=== PATIENT | female | born 1930 | race Caucasian/White ===

== ENCOUNTER 2018-04-19 14:40 | Observation (INO) ==
[2018-04-19] MEDS ORDERED: NITROGLYCERIN TOP ONE (14:47)
[2018-04-19] MEDS ORDERED: ZOFRAN IV ONE (14:47)
[2018-04-19] MEDS ORDERED: NS 1,000 ML IV ONE (14:47)
--- NOTE | 2018-04-19 15:05 | EKG Report ---
Test Performed on : 04/19/2018 2:53:13 PM Test Reason : CHEST PAIN Blood Pressure : / mmHG Vent. Rate : 051 BPM Atrial Rate : 043 BPM P-R Int : 000 ms QRS Dur : 144 ms QT Int : 486 ms P-R-T Axes : 000 -60 -16 degrees QTc Int : 447 ms Atrial fibrillation. with slow ventricular response. with a competing junctional pacemaker. Right bundle branch block Left anterior fascicular block Bifascicular block T wave abnormality, consider lateral ischemia Abnormal ECG No previous ECGs available Unconfirmed Result
--- NOTE | 2018-04-19 15:17 | Diag Imaging Result Doc PS360 ---
CHEST-PORTABLE - 04/19/2018 INDICATION: cp COMPARISON: None FINDINGS: There is mild cardiomegaly. Pulmonary vascularity is grossly normal. There is probably a small hiatal hernia. No infiltrates or edema. No pneumothorax or significant pleural effusion. IMPRESSION: Cardiomegaly. Small hiatal hernia. Electronically signed by Ryan Muro 04/19/2018 3:14 PM
[2018-04-19 16:42] LABS: URINE SOURCE CLEAN CATCH
[2018-04-19 16:46] LABS: UR EPITHELIAL CELLS <10 /HPF (<10); URINE BACTERIA NEGATIVE /HPF; URINE RBC <10 /HPF (<10); URINE WBC <10 /HPF (<10)
[2018-04-19 16:47] LABS: BILIRUBIN URINE NEGATIVE (NEGATIVE); BLOOD URINE NEGATIVE (NEGATIVE); COLOR YELLOW; GLUCOSE URINE NEGATIVE (NEGATIVE); KETONE URINE NEGATIVE (NEGATIVE); LEUKOCYTES URINE NEGATIVE (NEGATIVE); NITRITE URINE NEGATIVE (NEGATIVE); PH URINE 5.5; PROTEIN URINE NEGATIVE (NEGATIVE); SP GRAVITY URINE 1.005; TURBIDITY URINE CLEAR (CLEAR); UROBILINOGEN URINE NORMAL (NORMAL)
[2018-04-19 17:23] LABS: BASO# 0.03 X1000 (0.0-0.2); BASO% 0.2 % (0.0-0.8); EOS# 0.02 X1000 (0.0-0.7); EOS% 0.2 % (0.0-10.0); HEMOGLOBIN 11.8 g/dL (12.0-16.0); IMM GRAN# 0.04 X1000 (0.0-0.04); IMM GRAN% 0.3 % (0.0-0.5); LYMPH# 1.25 X1000 (1.2-3.4); LYMPH% 10.3 % (20.5-51.1); MCH 29.8 PG (27-31); MCHC 31.1 g/dL (33-37); MONO# 0.42 X1000 (0.11-0.59); MONO% 3.4 % (1.7-9.3); MPV 9.7 FL (7.4-10.4); NEUT# 10.42 X1000 (1.4-6.5); NEUT% 85.6 % (42.2-75.2); PLT 211 X1000 (130-400); RBC 3.96 XMIL (4.2-5.4); RDW 14.4 % (11.5-14.5); WBC 12.18 X1000 (4.8-10.8)
[2018-04-19 17:32] LABS: INR 1.67
[2018-04-19 17:33] LABS: PTT 36.7 Seconds (22.3-41.8)
[2018-04-19 17:47] LABS: ALB/GLOB RATIO 1.6; ALBUMIN 4.3 g/dL (3.5-5.0); CALCIUM 9.3 mg/dL (8.8-10.2); CREATININE 1.8 mg/dL (0.5-0.9); MAGNESIUM 1.3 mg/dL (1.5-2.7); POTASSIUM 4.7 mmol/L (3.5-5.1); TOTAL BILIRUBIN 0.21 mg/dL (0.20-1.00)
[2018-04-19] MEDS ORDERED: LOVENOX 1 MG/KG SUBQ ONE (17:51)
[2018-04-19 18:03] LABS: CK INDEX 5.2 (0.0-2.5); CK-MB 11.75 ng/mL (0.0-5.0)
--- NOTE | 2018-04-19 18:04 | PROVIDER DOCUMENTATION ---
This chart was entered by Charu Be Scribe, acting as scribe for Lance Estrada MD. HPI-Chest Pain - General Stated Complaint: CP Time Seen by Provider: 04/19/18 14:40 Source: patient Allergies/Adverse Reactions: Patient Allergies Allergy/AdvReac Type Severity Reaction Status Date / Time Sulfa (Sulfonamide Allergy RASH Verified 04/19/18 16:01 Antibiotics) Home Medications: Home Medication List Medication Instructions Recorded Confirmed Last Taken Type Escitalopram [Lexapro] 10 mg PO DAILY 04/19/18 04/19/18 Unknown History Felodipine [Felodipine ER] 10 mg PO DAILY 04/19/18 04/19/18 Unknown History Furosemide 20 mg PO DAILY 04/19/18 04/19/18 Unknown History Gabapentin 300 mg PO DAILY 04/19/18 04/19/18 Unknown History Latanoprost 1 drop ORDERED DAILY 04/19/18 04/19/18 Unknown History Levothyroxine [Synthroid] 88 mcg PO DAILY 04/19/18 04/19/18 Unknown History Montelukast Sodium 10 mg PO DAILY 04/19/18 04/19/18 Unknown History Omeprazole 20 mg PO DAILY 04/19/18 04/19/18 Unknown History Prazosin HCl 2 mg PO DAILY 04/19/18 04/19/18 Unknown History Ropinirole HCl 0.5 mg PO DAILY 04/19/18 04/19/18 Unknown History Valsartan/Hydrochlorothiazide 0.5 tab PO DAILY 04/19/18 04/19/18 Unknown History [Valsartan-Hctz 320-25 mg Tab] - History of Present Illness-CP Nature of Presenting Problem: Patient is a 88 year old female who presents to the ED with left side chest pain. Patient states chest pain radiates to left shoulder and left arm. Patient states nausea, shortness of breath, diaphoresis, weakness and dizziness with chest pain. Patient states symptoms started 3 days ago. Patient states she is currently on Coumadin for history of blood clots. Chest Pain Radiation: reports: arms (left), shoulders (left) Quality of Pain: reports: aching Severity in ED: mild Onset/Duration: 3 days ago Timing: still present, getting worse Context/Activities at Onset: reports: light activity Modifying Factors: improves with: nothing Associated Symptoms: reports: diaphoresis, dizziness, nausea, shortness of breath, weakness Similar Symptoms Previously?: Yes Recently Seen Here or By Another Healthcare Provider: No Review of Systems - Adult - REVIEW OF SYSTEMS - ADULT Constitutional: reports: no symptoms reported Eyes: reports: no symptoms reported Ears, Nose, Mouth & Throat: reports: no symptoms reported Cardiovascular: reports: chest pain (left). denies: heart murmur, palpitations Respiratory: reports: shortness of breath. denies: cough, wheezing Gastrointestinal: reports: nausea. denies: abdominal pain, diarrhea, vomiting Genitourinary: reports: no symptoms reported Musculoskeletal: reports: muscle weakness, other (left shoulder and left arm pain). denies: back pain, neck pain Integumentary: reports: no symptoms reported Neurological: reports: dizziness/vertigo (dizziness). denies: headache/ migraines, numbness, seizure, syncope Psychiatric: reports: no symptoms reported Endocrine: reports: no symptoms reported Hematologic/Lymphatic: reports: no symptoms reported Allergic/Immunologic: reports: no symptoms reported All Other Systems: Reviewed and Negative Past History - Adult - PAST MEDICAL HISTORY-ADULT Review of Records: reports: Nursing Assessment Review, Medications Reviewed, Social history reviewed & non-contributory. Major Childhood Illnesses: reports: denies history Cardiovascular: reports: denies history Respiratory: reports: denies history Gastrointestinal: reports: denies history Obstetrical/Gynecological: reports: denies history Genitourinary: reports: denies history Musculoskeletal: reports: denies history Neurological: reports: denies history Psychiatric: reports: denies history Endocrine/Immune: reports: denies history Other Conditions: reports: denies history - PRIOR SURGERIES/PROCEDURES Surgical/Procedure History: reports: reviewed, not pertinent - IMMUNIZATION STATUS Childhood Immunizations: See Nurse Assessment Flu Vaccine: See Nurse Assessment - FAMILY HISTORY Family History: reviewed, not pertinent - SOCIAL HISTORY Smoking: denies Substance Use: denies Physical Exam-General - PHYSICAL EXAM-ADULT Initial Vital Signs Reviewed: Yes - CONSTITUTIONAL General Appearance: alert, no apparent distress, anxious - HEAD, EARS, NOSE, MOUTH & THROAT HENMT: moist mucous membranes - RESPIRATORY Respiratory: chest non-tender, lungs clear, normal breath sounds - CARDIOVASCULAR Cardiovascular: bradycardia, systolic murmur (1/6) - GASTROINTESTINAL (ABDOMEN) Abdominal Exam: normal bowel sounds, non tender, soft - MUSCULOSKELETAL Extremity: non-tender, normal inspection - SKIN Integumentary: normal color, normal turgor, warm/dry - NEUROLOGIC Neurologic: grossly normal - PSYCHIATRIC Psych/Mental Status: normal mood/affect, oriented x 3 - HEART Score HEART Score: History: Highly Suspicious HEART Score: ECG: Non-Specific Repolarization Disturbance/LBBB/PM HEART Score: Age: > or = 65 Years HEART Score: Risk Factors for Atherosclerotic Disease: > or = 3 Risk Factors or History of Atherosclerotic Disease HEART Score: Troponin: < or = Normal Limit (HIgh Risk) Total HEART Score:: 7 Progress - PLAN OF CARE/RESULTS Progress/Plan/Lab Results: Vital Signs - 8 hr 04/19/18 15:03 Temperature 97.6 F Pulse Rate 87 Respiratory Rate 18 Blood Pressure 112/88 O2 Sat by Pulse Oximetry 88 L Laboratory Results - last 24 hr 04/19/18 04/19/18 04/19/18 16:35 17:13 17:13 WBC 12.18 H RBC 3.96 L Hgb 11.8 L Hct 38.0 MCV 96.0 MCH 29.8 MCHC 31.1 L RDW Std Deviation 14.4 Plt Count 211 MPV 9.7 Immature Gran % (Auto) 0.3 Neut % (Auto) 85.6 H Lymph % (Auto) 10.3 L [place] % (Auto) 3.4 Eos % (Auto) 0.2 Baso % (Auto) 0.2 Immature Gran # (Auto) 0.04 Neut # (Auto) 10.42 H Lymph # (Auto) 1.25 [place] # (Auto) 0.42 Eos # (Auto) 0.02 Baso # (Auto) 0.03 PT INR PTT (Actin FS) Sodium 141 Potassium 4.7 Chloride 100 Carbon Dioxide 25 Anion Gap 16 BUN 30 H Creatinine 1.8 H Estimated GFR/1.73 m2 27 BUN/Creatinine Ratio 17 Glucose 127 H Calculated Osmolality 289 Calcium 9.3 Magnesium 1.3 L Total Bilirubin 0.21 AST 27 ALT 19 Alkaline Phosphatase 70 Creatine Kinase 225 H Troponin T Lxa-Z-Vmuphnkqqyb Pept Total Protein 7.0 Albumin 4.3 Globulin 2.7 Albumin/Globulin Ratio 1.6 Urine Source CLEAN CATCH Urine Color YELLOW Urine Turbidity CLEAR Urine pH 5.5 Ur Specific [place] 1.005 Urine Protein NEGATIVE Ur Glucose (Stick) NEGATIVE Ur Ketones (Stick) NEGATIVE Urine Blood NEGATIVE Urine Nitrite NEGATIVE Urine Bilirubin NEGATIVE Urobilinogen Dipstick NORMAL Urine Leukocytes NEGATIVE Urine WBC (Auto) <10 Urine RBC (Auto) <10 U Epithel Cells (Auto) <10 Urine Bacteria (Auto) NEGATIVE 04/19/18 04/19/18 04/19/18 17:13 17:13 17:13 WBC RBC Hgb Hct MCV MCH MCHC RDW Std Deviation Plt Count MPV Immature Gran % (Auto) Neut % (Auto) Lymph % (Auto) [place] % (Auto) Eos % (Auto) Baso % (Auto) Immature Gran # (Auto) Neut # (Auto) Lymph # (Auto) [place] # (Auto) Eos # (Auto) Baso # (Auto) PT 21.0 H INR 1.67 PTT (Actin FS) 36.7 Sodium Potassium Chloride Carbon Dioxide Anion Gap BUN Creatinine Estimated GFR/1.73 m2 BUN/Creatinine Ratio Glucose Calculated Osmolality Calcium Magnesium Total Bilirubin AST ALT Alkaline Phosphatase Creatine Kinase Troponin T 0.174 H Twk-A-Nkoezlwulnz Pept 2171 H Total Protein Albumin Globulin Albumin/Globulin Ratio Urine Source Urine Color Urine Turbidity Urine pH Ur Specific [place] Urine Protein Ur Glucose (Stick) Ur Ketones (Stick) Urine Blood Urine Nitrite Urine Bilirubin Urobilinogen Dipstick Urine Leukocytes Urine WBC (Auto) Urine RBC (Auto) U Epithel Cells (Auto) Urine Bacteria (Auto) Orders Category Date Time Status Nursing- Obtain EKG once Care 04/19/18 14:46 Active Nursing- Obtain EKG once Care 04/19/18 17:50 Active Saline Loc NOW Care 04/19/18 14:45 Active Physician/Provider Consults Stat Cons 04/19/18 18:00 Ordered Heart Healthy Diet Diet 04/19/18 17:24 Active CHEST-PORTABLE [RAD] Stat Exams 04/19/18 14:[address] ANGIOGRM PULMONARY ARTERIES [CT] Stat Exams 04/19/18 14:47 Ordered CBC WITH ELECTRONIC DIFF [HEME] Stat Lab 04/19/18 17:13 Completed CK PROFILE [SP CHEM] Stat Lab 04/19/18 17:13 Results COMPREHENSIVE METABOLIC PANEL [CHEM] Stat Lab 04/19/18 17:13 Results MAGNESIUM [CHEM] Stat Lab 04/19/18 17:13 Results PRO B-NATRIURETIC PEPTIDE Stat Lab 04/19/18 17:13 Completed PROTIME WITH INR [COAG] Stat Lab 04/19/18 17:13 Completed PTT [COAG] Stat Lab 04/19/18 17:13 Completed TROPONIN T Stat Lab 04/19/18 17:13 Completed TSH Stat Lab 04/19/18 17:13 Received URINALYSIS W/POSS RFLX CULT [URINALYSIS] Stat Lab 04/19/18 16:35 Completed 0.9% Sodium Chloride Inj [Ns] 1,000 ml Med 04/19/18 14:47 Discontinued IV 999 mls/hr Enoxaparin 1 mg/kg [Lovenox 1 mg/kg] Med 04/19/18 17:51 Discontinued 1 each SUBQ NOW ONE Nitroglycerin Med 04/19/18 14:47 Discontinued 0.5 inch TOP NOW ONE Ondansetron [Zofran] Med 04/19/18 14:47 Discontinued 4 mg IV NOW ONE EKG [EKG] Stat Ther 04/19/18 14:46 Draft EKG [EKG] Stat Ther 04/19/18 17:50 Ordered Result Diagrams: 04/19/18 17:13 04/19/18 17:13 - EKG 1 Time of EKG reading by physician:: 14:53 EKG Read and Signed by:: Lance Estrada EKG Interpretation (*Must complete 3 of following elements*): Abnormal (rhythm - atrial fibrillation with slow ventricular response with a competing junctional pacemaker; T wave abnormality, consider lateral ischemia) Rate: 51 QRS: RBB Comments: left anterior fascicular block; bifascicular block; 2 Time of EKG reading by physician:: 18:01 EKG Read and Signed by:: Lance Estrada EKG Interpretation (*Must complete 3 of following elements*): Abnormal Rate: 72 Rhythm: NSR Eldridge: left QRS: other (Bifascicular block, first degree AV block, LVH) WA Interval: prolonged ST Wave: non-specific ST changes Prior EKG Comparison: changes noted (increased rate) - XRAY 1 XRAY Study: Chest Impression: See EMR Report (CHEST-PORTABLE - 04/19/2018 INDICATION: cp COMPARISON: None FINDINGS: There is mild cardiomegaly. Pulmonary vascularity is grossly normal. There is probably a small hiatal hernia. No infiltrates or edema. No pneumothorax or significant pleural effusion. IMPRESSION: Cardiomegaly. Small hiatal hernia. Electronically signed by Ryan Muro 04/19 3:14 PM 04/19/18 1514 Interpreting Physician: Ryan Muro MD Dictated Date/Time: 04/19/18 1514 cc: Lance Estrada MD; Ana Luisa Brennan MD) - CONSULTS/PCP/HOSPITALIST Notification #1 *Consult/PCP/Hospitalist*: Ralph Time Discussed: 18:02 Consult Disposition: Admit (to hospitalist) #2 Consult: CLIFTON Dockery Time Discussed: 18:03 (Admit to [facility]) Consult Disposition: Admit Departure - Departure Date of Disposition Decision: 04/19/18 Time of Disposition Decision: 18:03 DIAGNOSIS: Acute coronary syndrome, NSTEMI, initial episode of care, New onset of congestive heart failure Disposition: ADMITTED INPATIENT 09 Certified Medical Emergency: Emergent Condition: Fair Referrals and Follow-Ups: Ana Luisa Brennan MD [Primary Care Provider] - - Critical Care Note This patient required my direct & personal management of CC.: Yes Total Time (mins): 45 Critical Care Statement: This patient required my direct personal management to treat or rule out processes, the absence of which, could potentiallly result in sudden, clinically significant life or limb threatening deterioration. Attestation - Physician/ KESHA Attestation Patient care was provided by Advanced Practice Provider:: No The physician spent face to face time with patient:: Yes Advanced Practice Provider documentation review:: Supervising physician onsite and consulted in the evaluation and care of this patient. The physician did have a face to face encounter with the patient. This chart was documented by the indicated scribe, (Charu Be Scribe) and accurately reflects the services I performed and decisions made by , Lance Estrada MD, as attested by the provider's signature.
[2018-04-19] MEDS ORDERED: ZOFRAN IV PRN (18:21)
[2018-04-19] MEDS ORDERED: MORPHINE IV PRN (18:21)
[2018-04-19] MEDS ORDERED: LOVENOX SUBQ ONE (18:45)
[2018-04-19] MEDS ORDERED: MAGNESIUM SULFATE 2 GM/S.W.I. 2 GM/50 ML IVPB IV ONE (18:55)
--- NOTE | 2018-04-19 19:39 | HISTORY AND PHYSICAL ---
CHIEF COMPLAINT: Chest pain. PRIMARY CARE PROVIDER: Ana Luisa Brennan MD MINILAB OPERATOR: Nathan Purvis MD HISTORY OF PRESENT ILLNESS: Ms. Guerrero is a pleasant 88-year-old female, who carries a past medical history of lower extremity DVT in the past on Coumadin, left diseased kidney, sleep apnea and patient wears CPAP at night, atrial fibrillation, hypothyroidism, right hip arthritis, GERD, hyperlipidemia, hypertension, bilateral glaucoma, anxiety, and depression , who reports to the ED secondary to a possible syncopal episode after having chest pain. She reports last she had an intense episode of chest pain overnight. She sat up most of the night praying and hoping that the pain subsided. She states around the esthetician/spa coordinator she took a Tylenol, put on her CPAP, and was able to drift off to sleep. She had a 2nd episode of sudden sharp chest pain this a.m., where she got dizzy, nauseated, and a sharp pain in the center of her chest that radiated to her mid forearm. She states she tried to get today and mail some letters and was going to get ready for the day; however, she continued to feel weak and was walking into the den, and her daughter found her in the den in between the couch and the coffee table. She does not know how long she was out or really recall that much information or if she hit her head. We will check a head CT. EKG did show atrial fibrillation with a slow ventricular response with competing junctional pacemaker and a right bundle branch block. She did have elevated troponins at 0.174, an elevated white count, a BUN of 30, and a creatinine of 1.8. The patient does state that she has a diseased left kidney. She is unaware of her baseline renal function. We will admit her to [facility] for chest pain. Dr. Estrada has already spoken with Dr. Francisco Javier Rosas. We will do full-dose Lovenox. Continue with nitroglycerin paste, p.r.n. morphine. We will check an echocardiogram in the a.m. PAST MEDICAL HISTORY: 1. Lower extremity DVT, on Coumadin 2 mg at bedtime. 2. Arthritis with a bad right hip. She states she does not walk outside that often secondary to the pain in her hip. 3. Hypothyroidism. 4. Atrial fibrillation. 5. Gastroesophageal reflux disease. 6. Hyperlipidemia. 7. Hypertension. 8. Restless leg syndrome versus arthritis. 9. Sleep apnea, on CPAP. 10. Left disease kidney. 11. Bilateral glaucoma. 12. Anxiety and depression. SURGICAL HISTORY: 1. Hysterectomy. 2. Vein stripping. 3. Left lower. 4. Heart catheterization years ago in [place]. SOCIAL HISTORY: She is from [place], [place]. She moved here 5 years ago. She was seeing Dr. Trejo. She is now seeing Dr. Brennan after Dr. Trejo retired. She is a of 19 years. No alcohol, tobacco, or illicit drug use. ALLERGIES: Sulfa causes a rash. HOME MEDICATIONS: 1. Lexapro 10 mg p.o. daily. 2. Felodipine 10 mg p.o. daily. 3. Lasix 20 mg p.o. daily. 4. Gabapentin 300 mg p.o. daily. 5. Latanoprost 1 drop as ordered daily. 6. Synthroid 88 mcg p.o. daily. 7. Singulair 10 mg p.o. daily. 8. Prilosec 20 mg p.o. daily. 9. Requip 0.5 mg p.o. daily. 10. Valsartan/hydrochlorothiazide 320/25 mg tablet half a tablet p.o. daily. 11. Coumadin 2 mg p.o. at bedtime. REVIEW OF SYSTEMS: A 14 point review of systems was completed and negative, except for those mentioned in the HPI. PHYSICAL EXAMINATION: VITAL SIGNS: Temperature is 97.6 degrees, heart rate 87, respirations 18, blood pressure 112/88, O2 was 88% on room air, patient is now on nasal cannula, saturating in the high 90s. GENERAL: Ms. Guerrero is a timid 88-year-old female, who is lying on the stretcher in no acute distress. HEENT: Atraumatic, normocephalic. PERRL. NECK: Supple. Trachea midline. CARDIOVASCULAR: S1, S2 appreciated. No murmurs, gallops, or rubs noted. RESPIRATORY: Lung sounds clear. Chest excursion with nonlabored breathing. GASTROINTESTINAL: Soft, nontender, nondistended. Positive bowel sounds 4 quadrants. EXTREMITIES: Negative for edema. Bilateral pedal pulses are palpable. SKIN: Appears to be warm, dry, and intact. NEUROLOGIC: No focal deficits noted. Patient is alert and oriented x4. Follows commands. Moves all extremities. DIAGNOSTIC DATA: Chest x-ray is cardiomegaly, small hiatal hernia, pulmonary vascular is grossly normal. EKG: Atrial fibrillation with slow ventricular response at 51 beats per minute. Right bundle branch block. LABORATORY STUDIES: White count is 12, hemoglobin 11, hematocrit 38, platelet count 211,000. PT 21, INR 1.67, PTT 36.7. Sodium 141, potassium 4.7, BUN 30, creatinine 1.8, blood glucose is 127. Magnesium 1.3. CK 225, CK-MB 11.75, troponin 0.174. ProBNP is 2174. TSH is 1.73. Urinalysis is negative. ASSESSMENT AND PLAN: 1. Chest pain. The patient will be followed by Cardiology. She does have positive troponins. We will continue to trend. We will place her in [facility]. Make her n.p.o. after midnight. No caffeine. We will continue with full dose Lovenox. She is not therapeutic on her Coumadin. We will check an echocardiogram in the a.m., possible stress test in the a.m. However, patient states she can hardly get around secondary to her hip arthritis. She may need a resting stress test depending on her mobility issues. We will check a lipid profile, hemoglobin A1c. 2. Hypomagnesemia. We will treat with 2 g of magnesium. 3. Questionable acute kidney injury on chronic kidney disease. We do not know her baseline. We will gently hydrate her overnight and recheck her kidney function in the a.m. 4. Sleep apnea. Patient wears CPAP at night. 5. History of lower extremity deep vein thrombosis (DVT), on Coumadin. That medication will be put in by the ED nurse. 6. Hypothyroidism. TSH is 1.73. We will continue with Synthroid. 7. Atrial fibrillation. We will continue to monitor on telemetry. 8. Hyperlipidemia. Again, we will check a lipid profile. 9. Hypertension. We will continue her home medications when appropriate. 10. Bilateral glaucoma. We will continue on her eyedrops. 11. Anxiety and depression. We will continue with her Lexapro. Further recommendation to follow physician evaluation, laboratory, and diagnostic data. Dictated by CLIFTON Franz for Enrique Ledemsa MD cc: MD Ana Luisa Ayala MD Reginald D. Gladish, MD Peter Johnson, MD MTDD
--- NOTE | 2018-04-19 20:05 | Diag Imaging Result Doc PS360 ---
CT HEAD W/O CONTRAST - 04/19/2018 INDICATION: syncope COMPARISON: 09/14/2015 FINDINGS: There is mild diffuse cerebral atrophy. No intracranial mass or hemorrhage. The skull is intact. There is severe vascular disease with calcification of the carotid siphons. The sinuses, mastoids, and middle ears are clear. IMPRESSION: No acute process. This exam was performed using automated exposure control, adjustment of mA or kV according to patient size, and/or use of iterative reconstruction technique Electronically signed by Ryan Muro 04/19/2018 8:03 PM
[2018-04-19 20:12] LABS: CK INDEX 7.3 (0.0-2.5); CK-MB 21.19 ng/mL (0.0-5.0)
[2018-04-19] MEDS: TYLENOL PO PRN (22:00)
[2018-04-19] MEDS: NS 1,000 ML IV SCH (22:10)
[2018-04-19] MEDS: MINIPRESS PO SCH (22:19)
[2018-04-19] MEDS: NITROGLYCERIN TOP SCH (22:19)
[2018-04-20 03:52] LABS: CK INDEX 7.8 (0.0-2.5); CK-MB 26.42 ng/mL (0.0-5.0)
[2018-04-20 05:25] LABS: BASO# 0.03 X1000 (0.0-0.2); BASO% 0.3 % (0.0-0.8); EOS# 0.19 X1000 (0.0-0.7); EOS% 1.9 % (0.0-10.0); HEMATOCRIT 33.6 % (37.0-47.0); HEMOGLOBIN 10.6 g/dL (12.0-16.0); LYMPH# 2.68 X1000 (1.2-3.4); LYMPH% 26.4 % (20.5-51.1); MCH 30.8 PG (27-31); MCHC 31.5 g/dL (33-37); MCV 97.7 FL (81-99); MONO# 0.69 X1000 (0.11-0.59); MONO% 6.8 % (1.7-9.3); MPV 9.6 FL (7.4-10.4); NEUT# 6.56 X1000 (1.4-6.5); NEUT% 64.6 % (42.2-75.2); PLT 202 X1000 (130-400); RBC 3.44 XMIL (4.2-5.4); RDW 14.6 % (11.5-14.5); WBC 10.15 X1000 (4.8-10.8)
[2018-04-20 05:48] LABS: AGAP 12; ALB/GLOB RATIO 1.3; ALBUMIN 3.8 g/dL (3.5-5.0); ALKALINE PHOSPHATASE 55 U/L (32-104); BUN 34 mg/dL (8-22); CALCIUM 8.4 mg/dL (8.8-10.2); CHLORIDE 104 mmol/L (98-107); CHOLESTEROL 169 mg/dL (0-200); COSMO 293; CREATININE 1.8 mg/dL (0.5-0.9); ESTIMATED GFR 27; GLUCOSE 102 mg/dL (70-104); GOT 36 U/L (10-30); GPT 15 U/L (10-36); HDL 36 mg/dL (45-65); LDL 94 mg/dL; POTASSIUM 4.1 mmol/L (3.5-5.1); SODIUM 143 mmol/L (136-145); TCO2 27 mmol/L (25-35); TOTAL BILIRUBIN 0.27 mg/dL (0.20-1.00); TOTAL PROTEIN 6.8 g/dL (6.3-8.3); TRIGLYCERIDES 197 mg/dL (35-135); VLDL 39 mg/dL
[2018-04-20] MEDS: LOVENOX SUBQ SCH ×2 (06:01→18:00)
[2018-04-20] MEDS: NITROGLYCERIN TOP SCH ×6 (06:01→20:30)
[2018-04-20] MEDS ORDERED: SYNTHROID PO SCH (07:00)
--- NOTE | 2018-04-20 07:19 | EKG Report ---
Test Performed on : 04/20/2018 06:53:29 AM Test Reason : CP FU Blood Pressure : / mmHG Vent. Rate : 073 BPM Atrial Rate : 073 BPM P-R Int : 208 ms QRS Dur : 148 ms QT Int : 460 ms P-R-T Axes : 058 -61 003 degrees QTc Int : 506 ms Normal sinus rhythm. Right bundle branch block Left anterior fascicular block Bifascicular block Abnormal ECG When compared with ECG of 19-APR-2018 17:56, (Unconfirmed) No significant change was found Unconfirmed Result
--- NOTE | 2018-04-20 07:22 | EKG Report ---
Test Performed on : 04/19/2018 5:56:53 PM Test Reason : cp Blood Pressure : / mmHG Vent. Rate : 072 BPM Atrial Rate : 072 BPM P-R Int : 216 ms QRS Dur : 150 ms QT Int : 460 ms P-R-T Axes : 056 -58 023 degrees QTc Int : 503 ms Sinus rhythm. with 1st degree AV block. Right bundle branch block Left anterior fascicular block Bifascicular block Minimal voltage criteria for LVH, may be normal variant Abnormal ECG When compared with ECG of 19-APR-2018 14:53, (Unconfirmed) Sinus rhythm. has replaced Atrial fibrillation. T wave inversion less evident in Inferior leads T wave inversion less evident in Anterolateral leads QT has lengthened Unconfirmed Result
--- NOTE | 2018-04-20 07:31 | Diag Imaging Result Doc PS360 ---
EXAM: CHEST-PORTABLE - 04/20/2018 HISTORY: Chest Pain TECHNIQUE: Portable chest COMPARISON: 04/19/2018 FINDINGS: There is stable mild cardiomegaly. The lungs appear grossly clear. There is no pleural effusion or pneumothorax identified. There is possible hiatal hernia again noted. IMPRESSION: No acute changes. Electronically signed by Corona Denis 04/20/2018 7:29 AM
[2018-04-20] MEDS ORDERED: ASPIRIN EC PO SCH (09:00)
[2018-04-20] MEDS ORDERED: MINIPRESS PO SCH (09:00)
[2018-04-20] MEDS ORDERED: PRILOSEC PO SCH (09:00)
[2018-04-20] MEDS ORDERED: SINGULAIR PO SCH (09:00)
[2018-04-20] MEDS ORDERED: LEXAPRO PO SCH (09:00)
[2018-04-20] MEDS ORDERED: PLENDIL PO SCH (09:00)
[2018-04-20] MEDS ORDERED: LASIX PO SCH (09:00)
[2018-04-20] MEDS ORDERED: HYDROCHLOROTHIAZIDE PO SCH (09:00)
[2018-04-20] MEDS ORDERED: XALATAN 0.005% OPH SOLN RIGHT EYE SCH (09:00)
[2018-04-20] MEDS ORDERED: NEURONTIN PO SCH (09:00)
[2018-04-20] MEDS ORDERED: DIOVAN PO SCH (09:00)
[2018-04-20] MEDS ORDERED: REQUIP PO SCH (09:00)
[2018-04-20] MEDS: MINIPRESS PO SCH (09:06)
[2018-04-20] MEDS: TYLENOL PO PRN ×2 (09:14→20:30)
--- NOTE | 2018-04-20 09:40 | PROGRESS NOTE ---
DATE: 04/20/2018 SUBJECTIVE: At this moment, this patient is resting comfortably in bed. She is not complaining of pain at this moment. Her daughter is at the bedside. As per the patient, she had chest pain radiating to the left arm, dual/pressure-like. Troponins are trending up from 0.17 to 0.37 and 0.90 to the last one. I do not see any ST elevation on today's EKG and seems to be sinus. Yesterday the EKG done I believe at the emergency department showed atrial fibrillation. OBJECTIVE: Vital Signs: Temperature 98.3 degrees, pulse 73, respiratory rate 17, blood pressure 146/64, oxygen saturation 91% on 3 L of nasal cannula. HEENT: Head normocephalic. No trauma. PERRLA. Neck: Supple. No JVD. No masses. Central trachea. Chest: Clear to auscultation. No wheezing. No rales. Cardiovascular: RRR. Abdomen: Soft, nontender, nondistended. No hepatosplenomegaly. Extremities: No edema. No clubbing. No cyanosis. Neurological examination: The patient is alert and oriented x3. No focal deficits. LABORATORY: WBC 10.1, hemoglobin 10.6, hematocrit 33.6, platelets 202. Sodium 143, potassium 4.1, chloride 104, bicarbonate 27. BUN 34, creatinine 1.8, glucose 102, calcium 8.4, AST 36, ALT 15, alkaline phosphatase 55, CK 338, CK-MB 26.42, troponin 0.92. ASSESSMENT AND PLAN: 1. Chest pain. Likely this patient has an acute coronary syndrome, non ST elevation myocardial infarction. She does have possibly positive troponins and they are trending up. At this moment, she seems to be stable. We have placed this patient on Lovenox twice a day. Cardiology Department has been consulted. Echocardiogram has been done pending results. EKG showed normal sinus rhythm with right bundle-branch block. Yesterday her EKG showed possible atrial fibrillation. Will monitor. 2. Hypomagnesemia. She received already 2 grams of magnesium yesterday. I will recheck that today again. 3. Dyslipidemia. I will start this patient on Lipitor 20 mg. 4. Chronic kidney disease. As per the patient, she has chronic kidney disease. I do not have a baseline. Compared with yesterday, it is about the same. Continue with the same management. 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 5. Sleep apnea. Continue with CPAP at night. 6. Left lower extremity deep vein thrombosis. She has been on Coumadin. This medication has been on hold and she has been placed on Lovenox twice a day. INR was subtherapeutic. 7. Hypothyroidism. Continue with the same management. 8. Atrial fibrillation. Continue to monitor closely. 9. Hyperlipidemia. I have started this patient on treatment. 10. Hypertension. We will continue with her home medications when appropriate. Cardiology Department has been consulted. We will await for recommendations. 11. Bilateral glaucoma. Will continue with her eyedrops. 12. Anxiety and depression. Continue with the same management. I had a conversation with the patient and the daughter. I talked to them about the resuscitation status. She does not want to be on mechanical ventilation. She agreed with CPR, cardioversion, and medications, blood as well. Daughter at the bedside and they agree with that. cc: Abahy Raya MD
[2018-04-20] MEDS: NS 1,000 ML IV SCH (11:14)
[2018-04-20 11:43] LABS: CK INDEX 6.3 (0.0-2.5); CK-MB 17.24 ng/mL (0.0-5.0)
--- NOTE | 2018-04-20 12:48 | CARDIOLOGY CONSULTATION ---
DATE: 04/20/2018 REASON FOR CONSULTATION: Cardiology was consulted for a non-Q-wave myocardial infarction. HISTORY OF PRESENT ILLNESS: Ms. Guerrero is an 88-year-old, lady who carries a history of having DVTs, on Coumadin, mild renal insufficiency, sleep apnea (wears a CPAP at night), atrial fibrillation, hypothyroidism. Comes with complaints of having chest discomfort. She had intense chest discomfort last , described over the retrosternal area. Subsequently, she took some Tylenol and drifted off to sleep. She had a second episode of sharp pain, severe chest discomfort before coming to the emergency room and being admitted. These chest pains were severe, radiated to the left arm, associated with weakness. She continued to feel weak, was walking to [facility] and her daughter found her in the den in between the couch and the coffee table. She did not lose consciousness. She was aware of it. However, she says she felt weak and had significant chest pain. On admission, electrocardiogram revealed significant bradyarrhythmia and an artifact was noted. First EKG revealed normal sinus rhythm, right bundle branch block with left anterior hemiblock. Subsequent EKG this morning also revealed the same normal sinus rhythm, right bundle branch block, left anterior hemiblock. However, there was another electrocardiogram which revealed significant bradycardia, sinus, with artifact and PACs were noted. Currently, telemetry reveals normal sinus rhythm. PAST MEDICAL HISTORY: 1. DVT. 2. Arthritis of the right hip. 3. Hypothyroidism. 4. Chronic renal insufficiency. Creatinine varying from 1.7 to 1.8. 5. Gastroesophageal reflux disease. 6. Hyperlipidemia. 7. Hypertension. 8. Restless legs syndrome. 9. Sleep apnea. 10. Kidney disease. 11. Bilateral glaucoma. 12. Anxiety and depression. 13. She had a cardiac catheterization many years ago in [place] and was noted to have minimal blockages then. PAST SURGICAL HISTORY: Other surgeries include hysterectomy, vein stripping. SOCIAL HISTORY: She is from [place], [place]. Moved here 5 years ago. She does not smoke. Does not drink. HOME MEDICATIONS: Lexapro, felodipine 10, Lasix 20, gabapentin 300, Synthroid 88, Singulair 10, Prilosec 20, Requip, valsartan/hydrochlorothiazide 320/25. REVIEW OF SYSTEM: A 14 point review of systems was done. GI System: There is no history of nausea, vomiting, or diarrhea. There is no history of hematemesis or melena. Central Nervous System: There is no focal weakness to suggest a CVA or TIA. Genitourinary System: There is no dysuria or hematuria. Respiratory System: There is no history of cough, expectoration, or hemoptysis. PHYSICAL EXAMINATION: Vital Signs: Blood pressure was 112/88. Neck: Normal jugular venous pressure. Respiratory: Normal air entry. There are no crepitations or rhonchi. Abdomen: Soft, nontender. There was no guarding or rigidity. Bowel sounds were heard. Cardiovascular System: First and second heart sounds were heard. There were no murmurs or gallop. Neurological: There is no focal deficit. Patient was alert and oriented x4. DIAGNOSTIC DATA: Chest x-ray, cardiomegaly, hiatal hernia. ASSESSMENT AND PLAN: Ms. Ariadna Guerrero is an 88-year-old, lady with a history of renal insufficiency, deep venous thrombosis (is on Coumadin), CPAP, hypothyroidism, minimal coronary artery disease in the past, arthritis, gastroesophageal reflux disease, glaucoma , admitted with severe chest pain on two occasions. Laboratory examination reveals she had a non-Q-wave myocardial infarction. LABORATORY EXAMINATION: Showed sodium 143, potassium 4.1, BUN 34, creatinine 1.8. CK 338, CK-MB 26. Subsequent CK was 274, CK-MB of 17.24. Initial troponin was 0.297 and highest troponin was 0.927. Hematology: Hemoglobin 10.6, hematocrit 33.6, platelet count of 202,000 , WBC 10.15. INR 1.67. CT scan of her head was done as she was noted to have fallen down without losing any consciousness. CT of the head was unremarkable. ASSESSMENT AND PLAN: 1. I had a detailed discussion with the patient and her daughter. Given her non -Q-wave myocardial infarction, options were discussed. Patient would like to proceed with a left heart catheterization. Risks, benefits, and alternatives were explained. Patient will be transferred to [facility] for a left heart catheterization. She has chronic renal insufficiency. Dr. Purvis has also been consulted. 2. We will get an echocardiogram to assess cardiac and valvular function. 3. As far as medications are concerned, her INR was 1.60 on Coumadin for deep venous thrombosis, which we will hold. 4. We will put her on aspirin 81 mg a day. 5. We will discontinue the felodipine which was her home medication. She is on Diovan 160 mg a day. At home, she was taking Diovan/hydrochlorothiazide 360/25. We will add beta-blockers to her medical regimen. Lopressor 25 mg to be taken twice daily. 6. In addition to her aspirin, we will put her on Lovenox 1 mg/kg subcutaneous twice daily. We will hold the Lovenox in the morning. We will get blood work in the morning prior to her transfer to [facility]. 7. Hypothyroidism. Continue with the current medications. 8. Hyperlipidemia. We will increase the Lipitor to 40 mg a day. 9. Medications for glaucoma, eyedrops. We will continue the same. 10. Gastroesophageal reflux disease. She is on Prilosec. cc: Chris Kaufman MD MTDD
[2018-04-20] MEDS: LOPRESSOR PO SCH ×2 (13:26→20:30)
--- NOTE | 2018-04-20 13:45 | ECHO REPORT ---
ORDER DATE: 04/20/2018 INDICATION FOR STUDY: Chest pain, left arm pain, elevated troponin, atrial fibrillation, reflux disease. FINDINGS: 1. The right atrium appears normal in size. 2. Severe tricuspid regurgitation. The RV systolic pressure is estimated at 53 mmHg. 3. Normal RV size and systolic function. 4. Trace pulmonic insufficiency. 5. Normal left atrial size with a dimension of 3.7 cm. 6. No mitral valve prolapse. Moderate mitral regurgitation. Moderate mitral annular calcification is noted. 7. Normal LV size, end-diastolic dimension of 5 cm. There is mild left ventricular hypertrophy with a posterior and interventricular septal wall thickness 1.0 and 1.2 cm respectively. Normal LV systolic function. Calculated EF of 62% with normal wall motion. 8. Aortic valve opens well. It does appear to be somewhat sclerotic but does not appear to be stenotic. There is mild insufficiency. 9. Aorta appears normal in visualized segments. 10. No pericardial effusion is identified. cc: Francisco Javier Rosas MD
[2018-04-20] MEDS ORDERED: LIPITOR PO SCH ×2 (21:00)
[2018-04-21] MEDS: NITROGLYCERIN TOP SCH ×2 (02:06→02:08)
[2018-04-21 05:45] LABS: BASO# 0.05 X1000 (0.0-0.2); BASO% 0.6 % (0.0-0.8); EOS# 0.33 X1000 (0.0-0.7); EOS% 4.2 % (0.0-10.0); HEMATOCRIT 35.5 % (37.0-47.0); HEMOGLOBIN 10.9 g/dL (12.0-16.0); IMM GRAN# 0.02 X1000 (0.0-0.04); IMM GRAN% 0.3 % (0.0-0.5); LYMPH# 2.47 X1000 (1.2-3.4); LYMPH% 31.4 % (20.5-51.1); MCH 30.1 PG (27-31); MCHC 30.7 g/dL (33-37); MCV 98.1 FL (81-99); MONO# 0.55 X1000 (0.11-0.59); MPV 9.7 FL (7.4-10.4); NEUT# 4.45 X1000 (1.4-6.5); NEUT% 56.5 % (42.2-75.2); PLT 215 X1000 (130-400); RBC 3.62 XMIL (4.2-5.4); RDW 14.3 % (11.5-14.5); WBC 7.87 X1000 (4.8-10.8)
[2018-04-21 06:01] LABS: ALB/GLOB RATIO 1.4; ALBUMIN 3.8 g/dL (3.5-5.0); CALCIUM 8.7 mg/dL (8.8-10.2); CREATININE 1.6 mg/dL (0.5-0.9); POTASSIUM 4.7 mmol/L (3.5-5.1); TOTAL BILIRUBIN 0.3 mg/dL (0.20-1.00); TOTAL PROTEIN 6.6 g/dL (6.3-8.3)
[2018-04-21 06:25] LABS: INR 1.47
[2018-04-21 07:24] VITALS: BP 175/65
--- NOTE | 2018-04-21 08:01 | EKG Report ---
Test Performed on : 04/21/2018 06:52:22 AM Test Reason : nstemi Blood Pressure : / mmHG Vent. Rate : 063 BPM Atrial Rate : 063 BPM P-R Int : 228 ms QRS Dur : 146 ms QT Int : 472 ms P-R-T Axes : 045 -57 -22 degrees QTc Int : 483 ms Sinus rhythm. with 1st degree AV block. Right bundle branch block Left anterior fascicular block Bifascicular block Abnormal ECG When compared with ECG of 20-APR-2018 06:53, T wave inversion now evident in Inferior leads Unconfirmed Result
[2018-04-21] MEDS ORDERED: PLENDIL PO SCH (09:00)
--- NOTE | 2018-04-21 09:56 | DISCHARGE SUMMARY ---
ADMISSION DATE: 04/19/2018 DISCHARGE DATE: 04/21/2018 DISCHARGE DIAGNOSES: 1. Chest pain likely due to non ST elevation myocardial infarction. 2. Hypomagnesemia. 3. Dyslipidemia. 4. Chronic kidney disease. 5. Sleep apnea. 6. Left lower extremity deep venous thrombosis on home Coumadin. 7. Hypothyroidism. 8. History of atrial fibrillation. 9. Hyperlipidemia. 10. Hypertension. 11. Glaucoma. 12. Anxiety and depression. PROCEDURES PERFORMED: 1. Chest x-ray dated 04/19/2018. Impression: Cardiomegaly, small hiatal hernia. 2. Head CT dated 04/19/2018. Impression: No acute process. 3. Chest x-ray dated 04/20/2018. Impression: No acute changes. 4. Echocardiogram dated 04/20/2018. Findings: The right atrium appears normal in size, severe tricuspid regurgitation, right ventricular systolic pressure is estimated at 53 mmHg, normal right ventricle size and systolic function. 5. Trace pulmonary insufficiency, normal left atrial size with a dimension of 3.7 cm. 6. No mitral valve prolapse, moderate mitral regurgitation, moderate mitral annular calcification is noted. Normal left ventricular size and end diastolic dimension of 5 cm. There is mild left ventricular hypertrophy with a posterior and interventricular septal wall thickness of 1.0 and 1.2 cm respectively. Normal left ventricular systolic function with ejection fraction calculated at 62% with normal wall motion. Aortic valve opens well. It does appear to be somewhat sclerotic, but does not appear to be stenotic. There is a mild sufficiency. Aorta appears normal in the visualized segments. No pericardial effusion is identified. CONSULTANTS: Cardiology Department Dr. Kaufman. HOSPITAL COURSE: An 88-year-old female with a past medical history of lower extremity DVT in the past on Coumadin, left sleep apnea on CPAP machine at night, atrial fibrillation, hypothyroidism, right hip arthritis, GERD, hyperlipidemia, hypertension, bilateral glaucoma, anxiety and depression who presented to the emergency department due to a possible presyncope/syncopal episode after having chest pain. She was admitted on 04/19/2018. As per the patient, last , she had an intense episode of chest pain overnight. She sat up most of the night with pain. Then in the morning she took some Tylenol. She put her CPAP machine on again, and she fell sleep. She had a second episode of sudden sharp chest pain the day of admission. She got dizzy and nauseated. Chest pain was in the center of the chest, and radiated to the left arm. She states she tried to get the day of admission her mail, and was going to get ready for the day, however she continued to feel weak, and was walking into the den. Her daughter found her in the den in between the couch and the coffee table, and she does not know how long she was out or really recall that much information, or if she hit her head. CT scan of the head was negative. EKG showed atrial fibrillation. Elevated troponin's are 0.1. Elevated white count. BUN 30 and creatinine 1.8. She does state that she has a disease of one of the kidneys, the left kidney. She is unaware of her baseline renal function, but she has kidney dysfunction. She was admitted to the [facility] unit. We started this patient on full dose anticoagulation since the beginning. Continue with nitroglycerin paste and morphine. Echocardiogram was done. Cardiology Department evaluated this patient. Troponin's were trending up from 0.17 to 0.37, then 0.92 and, then decreased a little bit to 0.69. Cardiology Department contacted [facility] because this patient needs to be evaluated and if possible get a cardiac cath. The case has been explained in detail to the patient and the daughter which is at the bedside, they both agree with the treatment and plan. Today, this patient seems to be feeling better. She has been complaining of some headache but no dizziness. No chest pain. The plan is to transfer this patient to [place] today in the morning. DISCHARGE EXAMINATION: Upon discharge the patient was in a stable medical condition. Temperature 98.5 degrees, pulse 69, respiratory rate 16, and blood pressure 175/65. Oxygen saturation 94% on 2 L of nasal cannula. HEENT: Head normocephalic. No trauma. PERRLA. Neck: Supple. No JVD. No masses. Central trachea. Chest: Clear to auscultation. No wheezing. No rales. Cardiovascular: Irregularly irregular rate and rhythm. Abdomen: Soft, nontender, and nondistended. No hepatosplenomegaly. Extremities: No edema. No clubbing. No cyanosis. Neurological: The patient is alert and oriented x3. She is hard of hearing. LABORATORY: WBC 7.8, hemoglobin 10.9, hematocrit 35.5, and platelets 215,000. PT 19 creatinine 1.4, glucose 140, potassium 4.7, chloride 101, bicarbonate 29, BUN 31, creatinine 0.6, glucose 100, and calcium 8.7. Magnesium 1.4. AST 34. ALT 17. Alkaline phosphatase 59. ASSESSMENT AND PLAN: I have recommended for now to continue with most of her home medications. Since this patient will be transferred to [facility], the medications will be rechecked and provided by the doctors at [facility]. TIME SPENT: Time discharging this patient 30 minutes. cc: Abhay Raya MD
== END 2018-04-21 08:47 | disposition short-term general hospital (02) ==
LOC: SUPCPDRO → ED 14:40 → SUATTDRO 20:31 → INTOOBSV 20:31 → 3S 20:31
PROVIDERS: ATTEND Internal Medicine
CPT/HCPCS: 70450; 71010; 71045; 80053; 80061; 81001; 82550; 82553; 83735; 83880; 84443; 84484; 85025; 85610; 85730; 93005; 93306; 96365; 96372; 96375; 99285; 99291; A9270; J1650; J2405; J3475; J7030